=== PATIENT | female | born 2000 | race Caucasian/White ===

== ENCOUNTER → 2025-07-06 15:01 | Outpatient (CLI) | payer OTHER, SELFPAY ==
--- NOTE | 2025-07-06 15:06 | DI.US.S_ITS ---
PROCEDURE: US PELVIC COMPLETE INDICATIONS: Hirsutism TECHNIQUE: Real-time scanning was performed of the pelvic organs, with image documentation. Additional endovaginal scanning was necessary due to incomplete visualization of the adnexal and endometrial structures by transabdominal scanning. COMPARISON: None. FINDINGS: Uterus: Uterus is anteverted and normal in size at 7.5 x 3.7 x 5.1 cm. The myometrium is homogeneous. The endometrium measures 4 mm combined thickness. The IUD is seen at its expected location. Ovaries: The right ovary measures 3.2 x 1.7 x 2.3 cm, with a calculated ovarian volume of 6.5 cc. The left ovary measures 2.3 x 4.8 x 2.4 cm, with a calculated ovarian volume of 13.5 cc. The ovaries have a normal sonographic appearance, with a collapsing cyst seen involving the left ovary that measures up to 17 mm. Less than 12 follicles can be seen in each ovary. No adnexal masses are seen. Other: No pathologic free abdominal or pelvic fluid. IMPRESSION: No significant abnormality is seen. No findings of polycystic ovarian syndrome can be seen. The IUD is seen at its expected location. We strive to produce accurate, complete, and clear reports of imaging services. To assist us in improving patient care, this report was composed using standard report templates and voice recognition software. Therefore, it may contain abnormal punctuation, insertions and/or omissions. Occasional wrong-word or sound-alike substitutions may occur. Though we review the report and make efforts to correct it, we do recommend that the report be read carefully in proper context to recognize any text inaccuracies. Dictated by: Jefry Mishra M.D. on 07/06/2025 at 14:56 Approved by: Jefry Mishra M.D. on 07/06/2025 at 14:57
== END ==
LOC: US 15:05
PROVIDERS: PCP Family Medicine; Referring Provider Family Medicine; Visit Provider Family Medicine
DX: N92.6 Irregular menstruation, unspecified (principal); L68.0 Hirsutism
CPT/HCPCS: 76830; 76856